=== PATIENT | female | born 1960 | race Caucasian/White ===

== ENCOUNTER 2023-05-26 10:15 | Inpatient (IN) | payer OTHER ==
[~2023-05-26] VITALS: Ht 142.2 cm; Wt 64.9 kg
[2023-05-26 09:56] LABS: HEMOGLOBIN 12.6 g/dL (12.0-15.00); MEAN CORPUSCULAR HEMOGLOBIN 30.1 pg (27.00-32.0); MEAN CORPUSCULAR HGB CONC 34.2 g/dl (32.0-36.0); PLATELET COUNT 418 K/uL (150-450)
[2023-05-26 10:00] LABS: PH,URINE 6.5 (5.0-8.0); URINE APPEARANCE Clear; URINE BILIRRUBIN Negative (NEGATIVE); URINE BLOOD Negative; URINE COLOR Yellow; URINE GLUCOSE Negative (NEGATIVE); URINE LEUKOCYTE Moderate; URINE NITRATE Negative; URINE PROTEIN Negative (NEGATIVE)
[2023-05-26 10:04] LABS: URINE BACTERIA 304.9 uL (0.0-1933); URINE EPITHELIAL CELLS 45.2 uL (0.0-38.8); URINE RBC 3.8 uL (0.0-20.8); URINE WBC 29.9 uL (0.0-23.2)
[~2023-05-26 10:15] MED LIST: CLONAZEPAM0.5 M1 PO; HYDROCHLOROTHIA25 MG PO; LIPITOR40 MG PO; NORVASC10 MG PO; PROZAC10 MG PO
[2023-05-26 10:34] LABS: INR 1.08; PARTIAL THROMBOPLASTIN TIME 30.9 SECONDS (22.0-34.0); PROTHROMBIN TIME 11.3 SECONDS (9.0-11.5)
[2023-05-26 10:47] LABS: ALBUMIN 3.3 gm/dL (3.4-5.0); BILIRUBIN TOTAL 0.37 mg/dL (0.3-1.2); CALCIUM 9.5 mg/dL (8.5-10.1); CREATININE SERUM 0.5 mg/dL (0.55-1.02); GFR 125.43; GLOBULINA 4.1 G/DL (2.4-3.5); POTASSIUM 4.06 mEq/L (3.5-5.1); TOTAL PROTEIN 7.4 gm/dL (6.4-8.2)
[2023-05-31 06:56] LABS: HEMOGLOBIN 11.9 g/dL (12.0-15.00); MEAN CELL VOLUME 88.4 fL (80.00-100.00); MEAN CORPUSCULAR HGB CONC 33.9 g/dl (32.0-36.0); PLATELET COUNT 376 K/uL (150-450); RED BLOOD COUNT 3.96 M/uL (4.00-6.00); RED CELL DISTRIBUTION WIDTH 13.3 % (11.5-14.5)
[2023-05-31 08:03] LABS: ALBUMIN 2.5 gm/dL (3.4-5.0); CALCIUM 8.3 mg/dL (8.5-10.1); CREATININE SERUM 0.57 mg/dL (0.55-1.02); GFR 107.83; MAGNESIUM 2.3 mg/dL (1.8-2.4); PHOSPHOROUS 2.5 mg/dL (2.5-4.9); POTASSIUM 3.73 mEq/L (3.5-5.1)
[2023-06-01 07:39] LABS: HEMATOCRIT 31.4 % (36.0-45.00); HEMOGLOBIN 10.4 g/dL (12.0-15.00); MEAN CELL VOLUME 88.4 fL (80.00-100.00); MEAN CORPUSCULAR HEMOGLOBIN 29.1 pg (27.00-32.0); MEAN CORPUSCULAR HGB CONC 32.9 g/dl (32.0-36.0); PLATELET COUNT 292 K/uL (150-450); RED BLOOD COUNT 3.56 M/uL (4.00-6.00); RED CELL DISTRIBUTION WIDTH 13.1 % (11.5-14.5)
[2023-06-01 08:24] LABS: ALBUMIN 2.3 gm/dL (3.4-5.0); CALCIUM 8.5 mg/dL (8.5-10.1); CREATININE SERUM 0.39 mg/dL (0.55-1.02); GFR 167.08; MAGNESIUM 2.2 mg/dL (1.8-2.4); POTASSIUM 3.35 mEq/L (3.5-5.1)
[2023-06-01 08:26] LABS: PHOSPHOROUS 1.3 mg/dL (2.5-4.9)
[2023-06-02 07:04] LABS: HEMATOCRIT 29.8 % (36.0-45.00); HEMOGLOBIN 9.6 g/dL (12.0-15.00); MEAN CELL VOLUME 88.8 fL (80.00-100.00); MEAN CORPUSCULAR HEMOGLOBIN 28.6 pg (27.00-32.0); MEAN CORPUSCULAR HGB CONC 32.2 g/dl (32.0-36.0); PLATELET COUNT 287 K/uL (150-450); RED BLOOD COUNT 3.35 M/uL (4.00-6.00); RED CELL DISTRIBUTION WIDTH 13.3 % (11.5-14.5)
[2023-06-02 07:32] LABS: ALBUMIN 2.3 gm/dL (3.4-5.0); CALCIUM 7.9 mg/dL (8.5-10.1); CREATININE SERUM 0.3 mg/dL (0.55-1.02); GFR 226.16; MAGNESIUM 2.2 mg/dL (1.8-2.4); PHOSPHOROUS 2.7 mg/dL (2.5-4.9)
[2023-06-03] MEDS ORDERED: NEURONTIN300 MG PO (13:49)
[2023-06-03] MEDS ORDERED: ACETAMINOPHEN500 M2 PO (13:49)
[2023-06-03 15:08] LABS: ALBUMIN 2.4 gm/dL (3.4-5.0); CALCIUM 8.5 mg/dL (8.5-10.1); CREATININE SERUM 0.42 mg/dL (0.55-1.02); GFR 153.38; PHOSPHOROUS 2.2 mg/dL (2.5-4.9); POTASSIUM 3.06 mEq/L (3.5-5.1)
== END 2023-06-03 17:29 | disposition home or self-care (01) | DRG 331 ==
LOC: O/R 05-30 05:46 → SURH 05-30 05:46 → SURG 05-30 07:00 → SURH 05-30 16:58
PROVIDERS: Surgery; ADMIT Surgery; ATTEND Surgery
PROC: 0DBP4ZZ Excision of Rectum, Percutaneous Endoscopic Approach (ICD-10-PCS; 2023-05-30)
PROC: 0DNW4ZZ Release Peritoneum, Percutaneous Endoscopic Approach (ICD-10-PCS; 2023-05-30)
PROC: 0DTJ4ZZ Resection of Appendix, Percutaneous Endoscopic Approach (ICD-10-PCS; 2023-05-30)
PROC: 0DTN4ZZ Resection of Sigmoid Colon, Percutaneous Endoscopic Approach (ICD-10-PCS; principal; 2023-05-30 07:00)
DX: K57.32 Diverticulitis of large intestine without perforation or abscess without bleeding (principal); R19.4 Change in bowel habit; K60.3 Anal fistula; N73.6 Female pelvic peritoneal adhesions (postinfective)